=== PATIENT | female | born 1960 | race Caucasian/White ===

== ENCOUNTER 2019-08-30 14:52 | Emergency (ER) | payer OTHER ==
--- NOTE | 2019-08-30 16:53 | ED ---
Complex/Multi-Sys Presentation - HPI Summary HPI Summary: Patient is a 58 y/o F presenting to the ED for a chief complaint of generalized weakness for the last 2 months. Patient is present with her . Patient notes her symptoms started after noticing a chemical smell of ammonia in her nose. She later began to have generalized weakness, bilateral LE paresthesia, and headaches described as pressure. Patient reports a nodule in the middle of the chest above the sternum one year ago. She was seen by her PCP for her symptoms and was prescribed doxycycline for a sinus infection. After taking the doxycycline, she notes the nodule over her sternum "flattened." On 08/30/19, patient reports diarrhea. She denies one-sided weakness or vision changes. She has had tinnitus for the last 2 years after receiving dental implants. Patient was seen at [facility] on 08/27/19 for palpitations and had an EKG that showed bradycardia. PMHx is significant for bradycardia, thyroid problems, and polyps in her gallbladder. Patient admits tobacco use, but denies drug or alcohol use. She takes levothyroxine. Allergies noted. Medications reviewed. - History Of Current Complaint Chief Complaint: EDGeneral Time Seen by Provider: 08/30/19 16:23 Hx Obtained From: Patient Onset/Duration: Sudden Onset, Lasting Weeks, Still Present Timing: Constant Severity Currently: Moderate Severity Initially: Moderate Character: Typical Headache Associated Signs And Symptoms: Positive: Weakness - Generalized; negative one- sided weakness, Headache, Diarrhea - Allergies/Home Medications Allergies/Adverse Reactions: Allergies Allergy/AdvReac Type Severity Reaction Status Date / Time diphenhydramine Allergy See Comment Verified 08/30/19 15:01 [From Benelyssal] Home Medications: Home Medications Amoxicillin PO (*) [Amoxicillin 875 MG (*)] 875 mg PO BID 08/30/19 [History Confirmed 08/30/19] Famotidine TAB* [Pepcid 20 MG TAB*] 20 mg PO BID 08/30/19 [History Confirmed 02/11] Thyroid,Pork [Nature-Throid] 65 mg PO DAILY 08/30/19 [History Confirmed 08/30/19 ] Thyroid,Pork [Nature-Throid] 97.5 mg PO DAILY 08/30/19 [History Confirmed ] PMH/Surg Hx/FS Hx/Imm Hx Previously Healthy: Yes Endocrine/Hematology History: Reports: Hx Thyroid Disease Denies: Hx Diabetes Cardiovascular History: Reports: Other Cardiovascular Problems/Disorders - mitral valve prolapse, no treatment, bradycardia Denies: Hx Hypertension Respiratory History: Denies: Hx Asthma, Hx Chronic Obstructive Pulmonary Disease (COPD) GI History: Reports: Other GI Disorders - pain Denies: Hx Ulcer History: Reports: Other Problems/Disorders - increased urination -1 month Sensory History: Denies: Hx Legally Blind, Hx Deafness Opthamlomology History: Denies: Hx Legally Blind EENT History: Denies: Hx Deafness - Cancer History Cancer Type, Location and Year: cervical cancer 25 yrs ago - Surgical History Surgical History: Yes Surgery Procedure, Year, and Place: tubal . endometriosis - Immunization History Immunizations Up to Date: Yes Infectious Disease History: No Infectious Disease History: Denies: Hx Clostridium Difficile, Hx Hepatitis, Hx Human Immunodeficiency Virus (HIV), Hx of Known/Suspected MRSA, Hx Shingles, Hx Tuberculosis, Traveled Outside the in Last 30 Days - Social History Lives: With Family Alcohol Use: None Hx Substance Use: No Substance Use Type: Reports: None Hx Tobacco Use: Yes Smoking Status (MU): Heavy Every Day Tobacco Smoker Type: Cigarettes Amount Used/How Often: "I'm down to half a pack/day" Review of Systems Negative: Other - Negative vision changes Positive: Other - Positive tinnitus, at baseline; positive smell of ammonia Positive: Diarrhea Positive: Other - Positive nodule over the sternum Positive: Headache, Weakness - Generalized; negative one-sided weakness, Paresthesia - Bilateral LE All Other Systems Reviewed And Are Negative: Yes Physical Exam - Summary Physical Exam Summary: Constitutional: Well-developed, Well-nourished, Alert. (-) Distressed Skin: Warm, Dry HENT: Normocephalic; Atraumatic Eyes: Conjunctiva normal Neck: Musculoskeletal ROM normal neck. (-) JVD, (-) Stridor, (-) Tracheal deviation Cardio: Rhythm regular, rate normal, Heart sounds normal; Intact distal pulses. Radial pulses are 2+ and symmetric. (-) Murmur Pulmonary/Chest wall: Effort normal. (-) Respiratory distress, (-) Wheezes, (-) Rales Abd: Soft. (-) Tenderness, (-) Distension, (-) Guarding, (-) Rebound Musculoskeletal: (-) Edema Lymph: (-) Cervical adenopathy Neuro: Alert, Oriented x3, Strength normal, Cranial nerves II-XII are grossly intact. (-) Dysmetria, (-) Nystagmus, (-) Ataxia by finger to nose testing, (-) Sensory deficit. Psych: Mood and affect Normal Triage Information Reviewed: Yes Vital Signs On Initial Exam: Initial Vitals Temp Pulse Resp BP Pulse Ox 97.8 F 96 17 126/97 99 08/30/19 14:58 08/30/19 14:58 08/30/19 14:58 08/30/19 14:58 08/30/19 14:58 Vital Signs Reviewed: Yes Procedures - Sedation Patient Received Moderate/Deep Sedation with Procedure: No Diagnostics - Vital Signs Vital Signs Temp Pulse Resp BP Pulse Ox 08/30/19 14:58 97.8 F 96 17 126/97 99 - Laboratory Result Diagrams: 08/30/19 16:49 08/30/19 16:49 Lab Statement: Any lab studies that have been ordered have been reviewed, and results considered in the medical decision making process. - CT Brain CT CT Interpretation Completed By: Radiologist Summary of CT Findings: Brain CT IMPRESSION: 1. No acute intracranial pathology. 2. Air-fluid levels in the partially visualized right maxillary sinus, possibly reflecting right maxillary sinusitis. Reviewed by Dr. Hudson. Complex Multi-Symp Course/Dx Course Of Treatment: Patient's here with multiple vague complaints that occurred over the past year. Patient had 1.5 months of olfactory hallucinations and felt that there was a mass at her xiphoid process. On exam, patient has a normal neurologic exam and no evidence of a mass. Given patient' s hallucinations, a CT brain was ordered which showed no obvious mass. Patient is grossly unremarkable. Patient is being worked up for this as an outpatient needs to follow up with her PCP. Patient was given neurology follow-up as well - Diagnoses Provider Diagnoses: Phantosmia, Leg paresthesia, Fatigue Discharge ED - Sign-Out/Discharge Documenting (check all that apply): Patient Departure - Discharge - Discharge Plan Condition: Stable Disposition: HOME Patient Education Materials: Hallucinations (ED) Referrals: [facility] [Outside] Baljit Mccarthy MD [Medical Doctor] - Additional Instructions: PLEASE RETURN TO EMERGENCY DEPARTMENT FOR ANY NEW OR WORSENING SYMPTOMS. Please follow up with your primary care physician for any tests that they want. Follow up with Dr. Mccarthy to be evaluated for your abnormal swell issue. Please make all follow-ups in 1-3 days unless I advise you otherwise. - Billing Disposition and Condition Condition: STABLE Disposition: Home - Attestation Statements Document Initiated by Eve: Yes Documenting Scribe: Laury Carter Provider For Whom Scribchung is Documenting (Include Credential): Brayan Hudson MD Scribe Attestation: Laury Tillman, scribed for Brayan Hudson MD on 08/31/19 at 1005. Scribe Documentation Reviewed: Yes Provider Attestation: The documentation as recorded by the Laury ryan accurately reflects the service I personally performed and the decisions made by , Brayan Hudson MD Status of Scribe Document: Viewed
[2019-08-30 16:59] LABS: ABS Basophils 0.1 10^3/ul (0-0.2); ABS Lymphocytes 2.1 10^3/ul (1.0-4.8); ABS Monocytes 0.6 10^3/ul (0-0.8); ABS Neutrophils 8.4 10^3/ul (1.5-7.7); Eosinophil % 0.1 %; Hematocrit 42 % (35-47); Hemoglobin 14.2 g/dL (12.0-16.0); Lymphocyte % 18.9 %; Mean Corpuscular HGB Conc 33 g/dL (31-36); Mean Corpuscular Hemoglobin 30 pg (27-31); Mean Corpuscular Volume 90 fL (80-97); Mean Platelet Volume 8.7 fL (7.4-10.4); Platelet Count 289 10^3/uL (150-450); Red Blood Count 4.74 10^6 /uL (3.70-4.87); Red Cell Distribution Width 14 % (10-15); White Blood Count 11.1 10^3/uL (3.5-10.8)
[2019-08-30 17:13] LABS: Albumin 4.3 g/dL (3.2-5.2); Albumin/Globulin Ratio 1.4 (1-3); BUN/Creatinine Ratio 12.9 (8-20); Calcium 9.7 mg/dL (8.6-10.3); EGFR Non-African American 85.9 (>60); Globulin 3.1 g/dL (2-4); Potassium 3.9 mmol/L (3.5-5.0); Total Bilirubin 0.5 mg/dL (0.2-1.0); Total Protein 7.4 g/dL (6.4-8.9)
[2019-08-30 18:06] LABS: TSH (Thyroid Stimulating Horm) 0.43 mcIU/mL (0.34-5.60)
[2019-08-30 18:08] LABS: Free T4 1.04 ng/dL (0.61-1.12)
[2019-08-30 18:52] VITALS: BP 135/68
== END 2019-08-30 18:52 | disposition home or self-care (01) ==
LOC: ED 14:52
DX: R43.8 Other disturbances of smell and taste (principal); R20.2 Paresthesia of skin; R53.83 Other fatigue; R53.1 Weakness; E03.9 Hypothyroidism, unspecified; R19.7 Diarrhea, unspecified; R51 Headache; Z85.41 Personal history of malignant neoplasm of cervix uteri; Z79.899 Other long term (current) drug therapy; F17.210 Nicotine dependence, cigarettes, uncomplicated; Z88.0 Allergy status to penicillin
CPT/HCPCS: 36415; 70450; 80053; 83880; 84439; 84443; 85025; 99282